=== PATIENT | female | born 1985 | race Caucasian/White ===

== ENCOUNTER 2018-08-13 15:44 | Emergency (ER) | payer BC, MEDICAID, OTHER ==
[~2018-08-13] VITALS: Ht 152.4 cm; Wt 97.0 kg
[~2018-08-13 15:44] MED LIST: FERR27TA; PREN1TAB49
[2018-08-13 15:47] VITALS: Ht 152.4 cm; Wt 97.0 kg
[2018-08-13] MEDS ORDERED: ACET500C5 PO (19:16)
--- NOTE | 2018-08-13 19:19 | ERD ---
ER Documentation Chief Complaint Chief Complaint GHOSH WITH DIZZINESS, SENT BY MD R/T BRAIN MASS HPI 33-year-old female presents from referral from her control systems designer for an abnormal funduscopic exam by history. She may have had papilledema although there is no referral note. Patient does admit to intermittent mild headaches for the last several months but she did not think of it until her control systems designer asked her today. Denies any vomiting, visual changes, weakness, deficits, additional symptoms. ROS All systems reviewed and are negative except as per history of present illness. Medications Home Meds Active Scripts Acetaminophen* (Tylophen*) 500 Mg Capsule, 1 CAP PO Q6H PRN for PAIN AND OR ELEVATED TEMP, #20 CAP Prov:NELL BRIAN MD 08/13/18 Reported Medications Ferrous Sulfate (Iron) 1 Tab Tablet 10/25/10 Vits W-Ca,Fe,Fa(<1MG) () 1 Tab Tablet 10/25/10 Allergies Allergies: Coded Allergies: No Known Allergies (Verified Allergy, Mild, 10/25/10) PMhx/Soc Medical and Surgical Hx: pt denies Medical Hx, pt denies Surgical Hx History of Surgery: No Anesthesia Reaction: No Hx Neurological Disorder: No Hx Respiratory Disorders: No Hx Cardiac Disorders: No Hx Psychiatric Problems: No Hx Miscellaneous Medical Probl: No Hx Alcohol Use: No Hx Substance Use: No Hx Tobacco Use: No Smoking Status: Never smoker FmHx Family History: No diabetes, No coronary disease, No other Physical Exam Vitals Vital Signs Date Temp Pulse Resp B/P (MAP) Pulse Ox O2 O2 Flow FiO2 Time Delivery Rate 08/13/18 98.0 64 16 130/76 100 15:47 (94) Physical Exam Const: No acute distress Head: Atraumatic Eyes: Normal Conjunctiva ENT: Normal External Ears, Nose and Mouth. Neck: Full range of motion. No meningismus. Resp: Clear to auscultation bilaterally Cardio: Regular rate and rhythm, no murmurs Abd: Soft, non tender, non distended. Normal bowel sounds Skin: No petechiae or rashes Back: No midline or flank tenderness Ext: No cyanosis, or edema Neur: Awake and alert. Ambulatory. No deficits or weakness appreciated. Psych: Normal Mood and Affect Results 24 hrs Laboratory Tests Test 08/13/18 17:47 POC Beta HCG, Qualitative NEGATIVE Procedures/MDM CT brain read as normal by the radiologist. Visual acuity shows no acute abnormalities. Patient presents with referral from optometry presumed for possible papilledema. There is no evidence of intracranial lesions to suggest mass-effect. She will be discharged home with Tylenol and recommendations for primary care and neurology for persistent headaches. She does return to the ER for new or worsening symptoms. The patient was stable with no new complaints during the ER course. Clinically, there is no current evidence to suggest meningitis, sepsis, acute abdomen, pneumonia, stroke, acute coronary syndrome, pulmonary embolism, aortic dissection or any other emergent condition appearing to require further evaluation or hospitalization. Patient counseled regarding my diagnostic impression and care plan. Prior to discharge all questions answered. Pt agrees with treatment plan and understands strict return precautions. Pt is instructed to follow up with primary care provider within 24- 48 hours. Precautionary instructions provided including instructions to return to the ER if not improving or for any worsening or changing symptoms or concerns. Departure Diagnosis: Primary Impression: Headache Headache type: unspecified Headache chronicity pattern: unspecified pattern Intractability: not intractable Qualified Codes: R51 - Headache Condition: Stable Patient Instructions: Self-Care for Headaches Referrals: DOCTOR,NOT ON STAFF (PCP) Additional Instructions: CT read as normal. See neurology for persistent headaches. Recheck otherwise for new or worsening symptoms. NELL BRIAN MD Aug 13, 2018 19:19
[2018-08-13 19:22] VITALS: BP 131/82; PULSE 81; RESP 19
== END 2018-08-13 19:23 | disposition home or self-care (01) ==
LOC: FTE 15:44
DX: R51 Headache (principal)
CPT/HCPCS: 70450; 81025; Z7502